=== PATIENT | male | born 1955 | race Caucasian/White ===

== ENCOUNTER 2016-10-16 11:54 | Emergency (ER) | payer SELFPAY ==
[2016-10-16] MEDS ORDERED: LORazepam 2 MG/1 ML VIAL IVP ONE (12:01)
[2016-10-16] MEDS ORDERED: Sodium Chloride 0.9% 1,000 ML PRIMARY IV ONE (12:01)
[2016-10-16] MEDS ORDERED: MECLIZINE 25 MG CHEWABLE TABLET PO ONE (12:01)
--- NOTE | 2016-10-16 12:05 | EKG ---
[address] [place] [address] Measurements Intervals Foster Rate: 85 P: SC: 0 QRS: 14 QRSD: 101 T: 22 QT: 342 QTc: 385 Interpretive Statements ATRIAL FIBRILLATION ST & T-WAVE ABNORMALITY, POSSIBLE INFERIOR-LATERAL ISCHEMIA OR DIGITALIS EFFECT ABNORMAL RHYTHM ECG Compared to ECG 05/12/2016 13:27:10 No significant changes Electronically Signed On 10-17-16 16:08:15 MST by Homero Nolan [id number]
--- NOTE | 2016-10-16 12:11 | PDOC ---
Dizziness HPI - General Chief Complaint: Upper Extremity Problem/Injury Stated Complaint: light headed Date Seen by Provider: 10/16/16 Time Seen by Provider: 12:03 Source: POSITIVE: Patient Exam Limitations: POSITIVE: No limitations Nurse's Notes Reviewed & Considered: Yes - History of Present Illness Initial Comments: Patient is complaining of dizziness. Patient reports not feeling well since drinking a 1/2 cup of coffee this A.M. He has complaints of feeling strange, with dizziness. He waited two or three hours to come in because he was concerned about driving and being dizzy. He denies any fever, chills, sweats, nausea, vomiting, or diarrhea. He presently has a headache. Body Location Affected: REPORTS: Head Timing: REPORTS: Abrupt Duration: 4-6 hours Severity: Moderate Context: REPORTS: Rest Quality: REPORTS: Other (dizziness) Associated Symptoms: REPORTS: Headache Current Ability to Walk/Stand: REPORTS: Walks w/o Assistance Usual Ability to Walk/Stand: REPORTS: Walks w/o Assistance Aggrevated by: REPORTS: Nothing Similar Symptoms Previously: No Recently seen/treated/hospitalized: No Any Prior Injuries Related to Current Complaint?: No - Patient Home Medications Home Medications: Home Medications Warfarin Sodium [Coumadin] 5 mg ORAL ASDIR #165 tab 05/02/16 Digoxin 1 tab PO QD #90 tab 08/08/16 Diltiazem HCl [Diltiazem Er] 240 mg PO DAILY #90 cap 08/08/16 - Patient Allergies Allergies/Adverse Reactions: Allergies Allergy/AdvReac Type Severity Reaction Status Date / Time No Known Allergies Allergy Verified 10/16/16 11:57 Past Medical History - heen HEENT History: Denies History Cardiovascular History: Arrhythmia Additional Cardiovasular History: 06/2013 TRANESOPHAGEAL ECHO MODERATE MITRAL REGURG, 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 A FIB/ CARDIOVERSION Respiratory History: Denies History Gastrointestinal History: Denies History Additional Gastrointestinal History: INGUINAL HERNIA Genitourinary History: Denies History Endocrine History: Denies History Musculoskeletal History: Arthritis Prosthesis or Implant: No Neurological History: Denies History Blood Disorders: Denies History Psychiatric History: Denies History History of Sexually Transmitted Diseases: No Cancer History: Denies History History of MDRO: No History of Other Communicable Diseases: No Alcohol Use: Occasionally Substance Use Type: None Previous Surgical History: No Type / Date of Surgery: HERNIA Anesthesia Reactions: No Malignant Hyperthermia: No Significant Family History: Heart disease, Cancer ROS - Limitations ROS Limitations: No Limitations Constitution: REPORTS: Denies Symptoms Cardiovascular: REPORTS: Denies Cardiac Symptoms Respiratory: REPORTS: Denies Resp Symptoms Neurological: REPORTS: Headache, Dizziness Gastrointestinal: REPORTS: Denies GI Symptoms Endocrine: REPORTS: Denies Symptoms Musculoskeletal: REPORTS: Denies MS Symptoms Genitourinary: REPORTS: Denies Symptoms Eyes: REPORTS: Denies Symptoms ENT: REPORTS: Denies Symptoms Skin: REPORTS: Denies Skin Symptoms Lympathic: REPORTS: Denies Lympathic Symptoms Immunologic: POSITIVE: Denies Symptoms Psychiatric: POSITIVE: Denies Psych Symptoms Dizziness PE - General Appearance General Appearance: POSITIVE: No Acute Distress - HEENT HEENT: POSITIVE: Head Inspection Nml, Eyes Inspection Nml, Ears Inspection Nml, Nose Inspection Nml, Oral/Dental Inspect. Nml, Pharynx Inspect. Nml, PERRL, EOMI - Pupil Size Pupil Size: 4 mm: Bilateral - Neck Neck: POSITIVE: Supple - Respiratory Respiratory: POSITIVE: No Respiratory Distress, Breath Sounds Normal - Cardiovascular Cardiovascular: POSITIVE: No Murmur, No Gallop, Heart Sounds Normal, Irregularly Irreg. Rhythm - Abdomen Abdomen: Soft: (All Quadrants), Normal Bowel Sounds: (All Quadrants), Denies Tenderness: (All Quadrants) - Skin Skin: POSITIVE: Intact, Normal For Race, Warm, Dry, No Rash - Extremities Extremity: Non-Tender: (All Extremities), Normal ROM: (All Extremities), Normal Inspection: (All Extremities) - Neuro/Psych Neuro/Psych: POSITIVE: Alert, Affect Appropriate, Mood Appropriate, Normal Speech, Normal Cognition Cranial Nerves: POSITIVE: Normal As Tested, No Evidence of Acute CVA Cerebellar: POSITIVE: Normal As Tested Sensorimotor: POSITIVE: No Motor Deficits, No Sensory Deficits, Reflexes Normal Reflexes: Patellar (R): 1+, Patellar (L): 1+, Radial (R): 2+, Radial (L): 2+ Dizziness Progress - Results Reviewed by me Xrays/CTs/US Reviewed by me: Yes Discussed with Radiologist: Yes Lab Results Reviewed: Yes Lab Results:: Laboratory Results 10/16/16 10/16/16 Range/Units 12:01 12:06 WBC 6.60 (4.8-10.8) 10^3/uL RBC 5.03 (4.70-6.10) 10^6/uL Hgb 15.7 (14.0-18.0) g/dL Hct 46.2 (42.0-52.0) % MCV 91.8 H (80-90) FL MCH 31.2 H (27-31) PG MCHC 34.0 (33-37) g/dL RDW Std Deviation 46.1 (39-50) fL RDW Coeff of Oliver 14.0 (11.5-14.5) % Plt Count 214 (140-350) 10*3/uL MPV 9.6 (7.4-12.2) FL Immature Gran % (Auto) 0.5 (0-5) % Neut % (Auto) 72.3 (50-80) % Lymph % (Auto) 17.0 (10-50) % [place] % (Auto) 9.2 (5-15) % Eos % (Auto) 0.5 (0-8) % Baso % (Auto) 0.5 (0-1) % Immature Gran # (Auto) 0.03 10*3/UL Neut # (Auto) 4.78 10*3/UL Lymph # (Auto) 1.12 10*3/uL [place] # (Auto) 0.61 (0.3-0.8) 10*3/UL Eos # (Auto) 0.03 10*3/UL Baso # (Auto) 0.03 10*3/UL WBC Morphology Comment Normal morphology (NORM) Plt Morphology Comment Normal morphology (NORM) RBC Morph Comment Normal morphology (NORM) Sodium 140 (135-145) meq/L Potassium 4.3 (3.8-5.2) meq/L Chloride 106 (98-112) meq/L Carbon Dioxide 24 (23-33) meq/L Anion Gap 10 (5-20) BUN 17 (7-22) mg/dL Creatinine 0.9 (0.70-1.50) mg/dL Estimated GFR > 60 (>60 ml/min/1.73m(2)) BUN/Creatinine Ratio 18.88 (6-20) Glucose 133 H (78-110) mg/dL Calculated Osmolality 293.0 H (267-292) mOsm/kg Calcium 9.2 (8.7-10.7) mg/dL Magnesium 2.1 (1.6-2.4) mg/dL Total Bilirubin 0.7 (0.3-1.2) mg/dL AST 34 (21-57) IU/L ALT 41 (21-72) IU/L Alkaline Phosphatase 61 (38-126) IU/L Troponin I 0.014 (< 0.040) ng/mL Total Protein 7.0 (6.1-8.0) g/dL Albumin 4.2 (3.5-4.8) g/dL Globulin 2.7 (2.50-4.10) g/dL Albumin/Globulin Ratio 1.50 (1.3-2.0) mg/g EKG Interpretation:: POSITIVE: Normal Sinus Rhythm - Patient's Progress Pain Medication Addressed: POSITIVE: Not Applicable Re-Examine Time:: 13:31 Status: POSITIVE: Improved MDM / ED Course: Pt evaluated, Ct head negative. Labs are unremarkable. Patient improved with meclizine, NS, zofran. Assessment: Dizziness, improved. Plan: D/C home. Followup with PCP. CVA/Syncope Quality Measure Initiative: POSITIVE: EKG, NIH Stroke Scale (score is 0) - Consult Counseled: POSITIVE: Patient, RE: Lab Results, RE: Radiology Results, RE: DX, RE : Need for F/U Patient Care Time - Estimated PCT Patient Care Time (In Minutes): 30 Vital Signs - Recent Vital Signs Vital Signs: Vital Signs (Last 8 hours) Temp Pulse Resp BP Pulse Ox 10/16/16 13:03 123/110 10/16/16 11:56 99.2 F 83 21 141/124 96 - VS Reviewed Vital Signs Reviewed: Yes Discharge Clinical Impression: Dizziness Discharge Disposition: Discharged to Home Condition: Good Patient Instructions Given at Discharge: Dizziness (ED)
[2016-10-16 12:16] LABS: BASOPHILS # (AUTO) 0.03 10*3/UL; BASOPHILS % (AUTO) 0.5 % (0-1); EOSINOPHILS % (AUTO) 0.5 % (0-8); HEMATOCRIT 46.2 % (42.0-52.0); HEMOGLOBIN 15.7 g/dL (14.0-18.0); IMM GRAN % (AUTO) 0.5 % (0-5); IMM GRAN# (AUTO) 0.03 10*3/UL; LYMPHOCYTES # (AUTO) 1.12 10*3/uL; MEAN CORPUSCULAR HEMOGLOBIN 31.2 PG (27-31); MEAN PLATELET VOLUME 9.6 FL (7.4-12.2); MONOCYTES # (AUTO) 0.61 10*3/UL (0.3-0.8); MONOCYTES % (AUTO) 9.2 % (5-15); NEUTROPHILS # (AUTO) 4.78 10*3/UL; NEUTROPHILS % (AUTO) 72.3 % (50-80); RED BLOOD COUNT 5.03 10^6/uL (4.70-6.10)
[2016-10-16 12:17] LABS: PLATELET MORPHOLOGY COMMENT NORMAL MORPHOLOGY (NORM)
[2016-10-16 12:26] VITALS: RESP 21; TEMP 99.2
[2016-10-16 12:28] LABS: ASPARTATE AMINO TRANSFERASE 34 IU/L (21-57); BILIRUBIN,TOTAL 0.7 mg/dL (0.3-1.2); BLOOD UREA NITROGEN 17 mg/dL (7-22); BUN/CREATININE RATIO 18.88 (6-20); CALCIUM 9.2 mg/dL (8.7-10.7); CHLORIDE 106 meq/L (98-112); CREATININE 0.9 mg/dL (0.70-1.50); EST GLOMERULAR FILTRATION > 60 (>60 ml/min/1.73m(2)); GLUCOSE 133 mg/dL (78-110); MAGNESIUM 2.1 mg/dL (1.6-2.4); POTASSIUM 4.3 meq/L (3.8-5.2); SODIUM 140 meq/L (135-145)
--- NOTE | 2016-10-16 13:14 | DI ---
HISTORY: Dizziness and confusion. COMPARISON: None available. TECHNIQUE: Contiguous axial images of the brain were obtained and submitted for interpretation. FINDINGS: There is no acute infarct, intracranial hemorrhage, or mass effect. There is no hydroceph alus, or significant midline shift. The basal cisterns are not effaced. The visualized paranasal sinuses and mastoids are well-aerated. IMPRESSION: 1. No intracranial hemorrhage. Senescent change. MRI is recommended if clinical symptoms persist.
--- NOTE | 2016-10-16 13:15 | DI ---
HISTORY: Dizziness. COMPARISON: Prior chest x-ray of 05/12/2016. FINDINGS: There is persistent cardiomegaly. Asymmetric edema is improved. There is no focal consol idation or pleural effusion. Lung apices are not completely imaged. IMPRESSION: 1. Persistent cardiomegaly. 2. Asymmetric edema is improved.
== END 2016-10-16 14:01 | disposition other institution (70) ==
LOC: ER 11:54
DX: R42 Dizziness and giddiness (principal); R51 Headache
CPT/HCPCS: 70450; 71010; 80053; 83735; 84484; 85025; 93005; 93010; 96361; 96374; 99284; J2060; J7030

== ENCOUNTER → 2017-02-13 | Outpatient (CLI) | payer SELFPAY | LOC: MOB LAB 09:06 | PROVIDERS: ATTEND Family Medicine | DX: I48.91 Unspecified atrial fibrillation (principal) | CPT/HCPCS: 80162 ==